=== PATIENT | male | born 1970 | race Caucasian/White ===

== ENCOUNTER 2018-05-03 15:50 | Emergency (ER) | payer BC, OTHER, SELFPAY ==
[2018-05-03] MEDS ORDERED: THIAMINE 200 MG/2 ML INJ ONE (16:56)
[2018-05-03] MEDS ORDERED: NA CHLORIDE 0.9% 1,000 ML ONE (16:56)
[2018-05-03] MEDS ORDERED: NA CHLORIDE 0.9% 100 ML IV ONE (16:56)
[2018-05-03 17:13] LABS: Absolute Lymphocytes (CBC) 1.8 K/uL (0.7-4.9); Basophils % 0.4 % (0-1.3); Eosinophils % 0.2 % (0-4.4); Hematocrit 41.2 % (39.6-49.0); Lymphocytes % 18.1 % (15.3-44.8); MCH 31.9 pg (27.0-35.0); MCV 89.7 fL (80-100); MPV 8.7 fL (7.6-11.3); Monocytes % 10.4 % (3.3-12.3); RBC Red Blood Cell Count 4.59 M/uL (4.33-5.43)
[2018-05-03 17:19] LABS: Protime INR 1.16
[2018-05-03 17:36] LABS: ALT/SGPT 29 U/L (12-78); AST/SGOT 158 U/L (15-37); Albumin 3.4 g/dL (3.4-5.0); Alkaline Phosphatase 54 U/L (45-117); BUN Blood Urea Nitrogen 10 mg/dL (7-18); Bicarbonate 28 mmol/L (21-32); Bilirubin Direct 0.2 mg/dL (0-0.2); Bilirubin Total 1.2 mg/dL (0.2-1.0); Glucose Level 127 mg/dL (74-106); Potassium 3.5 mmol/L (3.5-5.1); Protein, Total 7.4 g/dL (6.4-8.2); Sodium Level 138 mmol/L (136-145)
[2018-05-03 17:44] LABS: Barbiturates NEGATIVE (NEGATIVE); Benzodiazepines POSITIVE (NEGATIVE); Cocaine NEGATIVE (NEGATIVE); METHAMPHETAM NEGATIVE (NEGATIVE); Methadone NEGATIVE (NEGATIVE); Opiates NEGATIVE (NEGATIVE); Phencyclidine NEGATIVE (NEGATIVE); THC Cannibis NEGATIVE (NEGATIVE)
[2018-05-03 18:57] LABS: Urine Blood 2+ (NEG); Urine Glucose NEGATIVE (NEG); Urine Protein NEGATIVE (NEG)
--- NOTE | 2018-05-03 19:47 | RAD REPORT ---
EXAM DESCRIPTION: CT - Head C Spine Logan King - 05/03/2018 7:18 pm CLINICAL HISTORY: Head and neck injury with chest and abdominal pain status post fall. Head and neck pain . TECHNIQUE: Computed axial tomography of the head and cervical spine was obtained Computed axial tomography of the chest, abdomen and pelvis was obtained. 100 cc Isovue-300 was given intravenously coronal and sagittal reconstruction was performed. All CT scans are performed using dose optimization technique as appropriate and may include automated exposure control or mA/KV adjustment according to patient size. COMPARISON: None FINDINGS: An intracranial bleed is not seen. The ventricles are normal in caliber. An extra-axial fl uid collection is not noted. Fluid within the sinuses/mastoids is not seen A cervical fracture is not seen. No dislocation is seen. A mediastinal hematoma is not noted. A pleural effusion is not present. A lung contusion is not seen. Mild right lower lobe atelectasis is seen The liver, spleen, pancreas, adrenals, kidneys and bladder appear unremarkable. A small umbilical hernia seen IMPRESSION: 1. No acute intracranial abnormality is seen 2. A cervical fracture is not visualized. If the patient continues have symptoms to suggest intracran ial/spinal cord pathology then MRI would be recommended. 3. No traumatic injury involving the chest, abdomen or pelvis is seen.
[2018-05-03] MEDS ORDERED: IBUPROFEN 400 MG TAB ONE (21:34)
--- NOTE | 2018-05-03 23:53 | ER ---
Nurse's Notes [facility] Name: Jeremiah Chambers Age: 47 yrs Sex: Male : 1970 Arrival Date: 05/03/2018 Time: 15:56 Bed 18 Private MD: Jewel Salinas E Diagnosis: Adjustment disorder with depressed mood;Anxiety disorder, unspecified Presentation: 05/03 15:57 Presenting complaint: Patient states: took unknown number of 2 mg xanax last night at [facility] approximately 12am or 1am. Pt denies drinking last night. Abrasion noted to left posterior shoulder but pt is unable to say what happened. Pt states he took medication to try to sleep after getting in an argument with his . Transition of care: patient was not received from another setting of care. Onset of symptoms was May 03, 2018 at 00:00. Risk Assessment: Do you want to hurt yourself or someone else? Other: pt denies but took an unknown number of 2 mg xanax last night. Initial Sepsis Screen: Does the patient meet any 2 criteria? No. Patient's initial sepsis screen is negative. Does the patient have a suspected source of infection? No. Patient's initial sepsis screen is negative. Care prior to arrival: None. 15:57 Method Of Arrival: Wheelchair 5 15:57 Acuity: MONIQUE 2 dm5 Historical: - Allergies: 16:20 No Known Allergies; mg2 - Home Meds: 16:20 Xanax Oral [Active]; mg2 - PMHx: 16:20 Depression; mg2 - PSHx: 16:20 Hernia repair; mg2 - Immunization history:: Flu vaccine is not up to date. - Social history:: Smoking status: Patient/guardian denies using tobacco, Patient uses alcohol, on a daily basis. Patient/guardian denies using street drugs, IV drugs. - Ebola Screening: : No symptoms or risks identified at this time. Screenin:21 Abuse screen: Denies threats or abuse. Denies injuries from another. Nutritional mg2 screening: No deficits noted. Tuberculosis screening: No symptoms or risk factors identified. Fall Risk Fall in past 12 months (25 points). IV access (20 points). Assessment: 16:22 General: Appears in no apparent distress. comfortable, Behavior is calm, cooperative. mg2 Pain: Complains of pain in left shoulder Pain does not radiate. Pain currently is 8 out of 10 on a pain scale. Quality of pain is described as aching, Pain began suddenly, last night Is intermittent. Neuro: Level of Consciousness is awake, alert, obeys commands, Oriented to person, place, time, situation. Cardiovascular: Capillary refill < 3 seconds Patient's skin is warm and dry. Respiratory: Airway is patent Respiratory effort is even, unlabored, Respiratory pattern is regular, symmetrical. GI: No signs and/or symptoms were reported involving the gastrointestinal system. GI: Reports. GI: Reports nausea. : No signs and/or symptoms were reported regarding the genitourinary system. EENT: No signs and/or symptoms were reported regarding the EENT system. Derm: Skin is intact, Wound noted left shoulder blade Wound is abrasion. Musculoskeletal: Circulation, motion, and sensation intact. 18:33 Reassessment: Patient appears in no apparent distress at this time. Patient and/or mg2 family updated on plan of care and expected duration. Pain level reassessed. Patient is alert, oriented x 3, equal unlabored respirations, skin warm/dry/pink. 's [id number]. 19:33 Reassessment: Patient appears in no apparent distress at this time. Patient and/or jd3 family updated on plan of care and expected duration. Pain level reassessed. Patient is alert, oriented x 3, equal unlabored respirations, skin warm/dry/pink. pt in room with sitter at bedside, watching TV. 20:00 Reassessment: Patient appears in no apparent distress at this time. No changes from [facility] previously documented assessment. Patient and/or family updated on plan of care and expected duration. Pain level reassessed. Patient is alert, oriented x 3, equal unlabored respirations, skin warm/dry/pink. spoke with on the phone and explained the process of needing to be evaluated by [facility], pt reported understanding and is cooperating. 21:00 Reassessment: Patient appears in no apparent distress at this time. Patient and/or jd3 family updated on plan of care and expected duration. Pain level reassessed. Patient is alert, oriented x 3, equal unlabored respirations, skin warm/dry/pink. 22:00 Reassessment: Patient appears in no apparent distress at this time. No changes from jd3 previously documented assessment. Patient and/or family updated on plan of care and expected duration. Pain level reassessed. Patient is alert, oriented x 3, equal unlabored respirations, skin warm/dry/pink. 23:00 Reassessment: Patient appears in no apparent distress at this time. Patient and/or jd3 family updated on plan of care and expected duration. Pain level reassessed. Patient is alert, oriented x 3, equal unlabored respirations, skin warm/dry/pink. 05/04 00:01 Reassessment: Patient appears in no apparent distress at this time. Patient and/or jd3 family updated on plan of care and expected duration. Pain level reassessed. Patient is alert, oriented x 3, equal unlabored respirations, skin warm/dry/pink. provider in room with pt discussing plan of care. Psych: 05/03 21:14 Subjective: Patient's mood is appropriate Delusions are denied, Hallucinations are jd3 denied Having thoughts of suicide. Objective: Patient is cooperative, pt was initially not wanting to cooperate. pt is now cooperative. Interventions: Removed personal items and placed in bag. Patient placed in hospital gown. Searched person for dangerous items. Urine collected and sent for urine drug test. Belonging list filled out. Suicide Risk Assessment: Sad Person Scale: Sex of patient: Male: Score 1 point. Age of patient: Score 0 point if patient falls outside of specified age parameters. Depression: Score 0 point if signs of depression are not present. Previous Attempt: Score 0 point if patient has not previously attempted suicide. Substance Abuse: Score 1 point if patient abuses alcohol or drugs. Rational Thinking: Score 0 point if patient has rational thinking. Social Support: Score 0 if social support is present/available. Organized Plan: Score 1 point if patient had a plan in place. Relationship: Score 0 point if patient has a spouse or domestic partner. Chronic Sickness: Score 0 point if patient does not have a chronic illness, debilitating, or severe disorder. TOTAL POINTS: If total points are 3-4, proposed clinical action is close follow-up/consider hospitalization. Safety Checks: Personal items have been removed. Door is open. No visitors are present at this time. Patient uses benzodiazepines. 05/04 00:02 Commitment: pt discharged. j Vital Signs: 05/03 15:57 BP 127 / 90; Pulse 97; Resp 25; Pulse Ox 94% on R/A; dm5 16:06 Temp 98.7; Weight 88.45 kg; Height 5 ft. 9 in. (175.26 cm); mg2 17:34 BP 116 / 87; Pulse 88; Resp 18; Pulse Ox 100% ; mg2 18:35 BP 133 / 97; Pulse 79; Resp 18; Pulse Ox 100% on R/A; mg2 19:35 BP 136 / 92; Pulse 87; Resp 18 S; Pulse Ox 95% on R/A; jd3 23:35 BP 126 / 79; Pulse 85; Resp 17 S; Temp 99.8(O); Pulse Ox 99% on R/A; Pain 0/10; jd3 16:06 Body Mass Index 28.80 (88.45 kg, 175.26 cm) mg2 ED Course: 15:56 Patient arrived in ED. mr 15:56 Jewel Salinas MD is Private Physician. mr 15:57 Arm band placed on right wrist. Patient placed in an exam room, on a stretcher, on dm5 night monitor, on pulse oximetry. 16:00 Triage completed. dm5 16:06 Ajith Dumont, RN is Primary Nurse. mg2 16:21 No provider procedures requiring assistance completed. Inserted saline lock: 20 gauge mg2 in right antecubital area, using aseptic technique. Blood collected. 16:24 Patient has correct armband on for positive identification. Pulse ox on. NIBP on. Door mg2 closed. Warm blanket given. 16:41 Lars Baltazar MD is Attending Physician. [facility] 17:26 EKG done, by tree and shrub technician. reviewed by Lars Baltazar MD. 3 19:15 Safety Checks: Personal items have been removed. The door is open or patient has been jd3 placed in a hallway bed/chair. Sitter present at this time. 19:18 CT [facility] (Head C Spine CAP W Con) In Process Unspecified. EDMS 19:30 Safety Checks: Personal items have been removed. The door is open or patient has been jd3 placed in a hallway bed/chair. Sitter present at this time. 19:31 Safety Checks: Personal items have been removed. The door is open or patient has been gc placed in a hallway bed/chair. Sitter present at this time. 19:38 Lavern Rankin FNP-C is PHCP. snw 19:45 Safety Checks: Personal items have been removed. The door is open or patient has been gc placed in a hallway bed/chair. Sitter present at this time. 20:00 Safety Checks: Personal items have been removed. The door is open or patient has been gc placed in a hallway bed/chair. Sitter present at this time. 20:15 Safety Checks: Personal items have been removed. The door is open or patient has been gc placed in a hallway bed/chair. Sitter present at this time. 20:30 Safety Checks: Personal items have been removed. The door is open or patient has been gc placed in a hallway bed/chair. Sitter present at this time. 20:45 Safety Checks: Personal items have been removed. The door is open or patient has been gc placed in a hallway bed/chair. Sitter present at this time. 21:00 Safety Checks: Personal items have been removed. The door is open or patient has been gc placed in a hallway bed/chair. Sitter present at this time. 21:15 Safety Checks: Personal items have been removed. The door is open or patient has been gc placed in a hallway bed/chair. Sitter present at this time. 21:30 Safety Checks: Personal items have been removed. The door is open or patient has been jd3 placed in a hallway bed/chair. Sitter present at this time. 21:45 Safety Checks: Personal items have been removed. The door is open or patient has been jd3 placed in a hallway bed/chair. Sitter present at this time. 22:00 Safety Checks: Personal items have been removed. The door is open or patient has been jd3 placed in a hallway bed/chair. Sitter present at this time. 22:15 Safety Checks: Personal items have been removed. The door is open or patient has been jd3 placed in a hallway bed/chair. Sitter present at this time. 22:30 Safety Checks: Personal items have been removed. The door is open or patient has been gc placed in a hallway bed/chair. Sitter present at this time. 22:45 Safety Checks: Personal items have been removed. The door is open or patient has been gc placed in a hallway bed/chair. Sitter present at this time. 23:00 Safety Checks: Personal items have been removed. The door is open or patient has been gc placed in a hallway bed/chair. Sitter present at this time. 23:15 Safety Checks: Personal items have been removed. The door is open or patient has been gc placed in a hallway bed/chair. Sitter present at this time. 23:15 Spoke with [facility] and arranged for a screener. cc 23:30 Safety Checks: Personal items have been removed. The door is open or patient has been gc placed in a hallway bed/chair. Sitter present at this time. 23:45 Safety Checks: Personal items have been removed. The door is open or patient has been jd3 placed in a hallway bed/chair. Sitter present at this time. 23:52 Jewel Salinas MD is Referral Physician. [facility] 05/04 00:00 Safety Checks: Personal items have been removed. The door is open or patient has been jd3 placed in a hallway bed/chair. Sitter present at this time. 00:03 IV discontinued, intact, bleeding controlled, No redness/swelling at site. Pressure jd3 dressing applied. Administered Medications: 05/03 17:02 Drug: NS 0.9% 1000 ml Route: IV; Rate: 1 bolus; Site: right antecubital; mg2 19:00 Follow up: Response: No adverse reaction; IV Status: Completed infusion; IV Intake: jd3 1000ml 17:03 Drug: Thiamine 100 mg Route: IV; Rate: bolus; Site: right antecubital; mg2 05/04 00:04 Follow up: Response: No adverse reaction; IV Status: Completed infusion jd3 05/03 21:33 Drug: Motrin 400 mg Route: PO; jd3 05/04 00:04 Follow up: Response: No adverse reaction jd3 Intake: 05/03 19:00 IV: 1000ml; Total: 1000ml. jd3 Outcome: 23:53 Discharge ordered by . [facility] 05/04 00:02 Condition: stable jd3 00:06 Discharged to home ambulatory. jd3 00:06 Discharge instructions given to patient, Instructed on discharge instructions, follow up and referral plans. Demonstrated understanding of instructions, follow-up care. 00:10 Patient left the ED. jd3 Signatures: Dispatcher [employer] Lesly Mercado, TAZ RN Lars Jett MD MD cha Therrien, Shelly, TRANSIT COACH OPERATOR-C TRANSIT COACH OPERATOR-Csnw Piedad Griffiths mr ChurchDaisha Jonathon, RN RN jd3 Ajith Dumont RN RN mg2 Kaitlynn Sifuentes sm3 Tiki Levy gc Corrections: (The following items were deleted from the chart) 05/03 17:35 16:06 Temp 98.7F; Height 5 ft. 9 in.; mg2 mg2
--- NOTE | 2018-05-03 23:53 | EDPHYS ---
Physician Documentation [facility] Name: Jeremiah Chambers Age: 47 yrs Sex: Male : 1970 Arrival Date: 05/03/2018 Time: 15:56 Bed 18 Private MD: Jewel Salinas E ED Physician Lars Baltazar HPI: 05/03 18:49 This 47 yrs old Male presents to ER via Wheelchair with complaints of kristopher Overdose. 18:49 The patient presents to the emergency department after a known overdose, that was kristopher intentional. Context: Method: the patient has a confirmed or suspected ingestion, of benzodiazepines, Time: last night. Associated signs and symptoms: The patient has no apparent associated signs or symptoms. Severity of symptoms: At their worst the symptoms were mild in the emergency department the symptoms are unchanged. Historical: - Allergies: 16:20 No Known Allergies; mg2 - Home Meds: 16:20 Xanax Oral [Active]; mg2 - PMHx: 16:20 Depression; mg2 - PSHx: 16:20 Hernia repair; mg2 - Immunization history:: Flu vaccine is not up to date. - Social history:: Smoking status: Patient/guardian denies using tobacco, Patient uses alcohol, on a daily basis. Patient/guardian denies using street drugs, IV drugs. - Ebola Screening: : No symptoms or risks identified at this time. ROS: 18:50 Constitutional: Negative for fever, chills, and weight loss, Eyes: Negative for injury, kristopher pain, redness, and discharge, ENT: Negative for injury, pain, and discharge, Neck: Negative for injury, pain, and swelling, Cardiovascular: Negative for chest pain, palpitations, and edema, Respiratory: Negative for shortness of breath, cough, wheezing, and pleuritic chest pain, Abdomen/GI: Negative for abdominal pain, nausea, vomiting, diarrhea, and constipation, : Negative for injury, bleeding, discharge, and swelling, MS/Extremity: Negative for injury and deformity, Skin: Negative for injury, rash, and discoloration. 18:50 Back: Positive for decreased range of motion, pain at rest, pain with movement, of the left scapular area. Exam: 18:50 Constitutional: This is a well developed, well nourished patient who is awake, alert, kristopher and in no acute distress. Head/Face: Normocephalic, atraumatic. Eyes: Pupils equal round and reactive to light, extra-ocular motions intact. Lids and lashes normal. Conjunctiva and sclera are non-icteric and not injected. Cornea within normal limits. Periorbital areas with no swelling, redness, or edema. ENT: Nares patent. No nasal discharge, no septal abnormalities noted. Tympanic membranes are normal and external auditory canals are clear. Oropharynx with no redness, swelling, or masses, exudates, or evidence of obstruction, uvula midline. Mucous membranes moist. Neck: Trachea midline, no thyromegaly or masses palpated, and no cervical lymphadenopathy. Supple, full range of motion without nuchal rigidity, or vertebral point tenderness. No Meningismus. Chest/axilla: Normal chest wall appearance and motion. Nontender with no deformity. No lesions are appreciated. Cardiovascular: Regular rate and rhythm with a normal S1 and S2. No gallops, murmurs, or rubs. Normal PMI, no JVD. No pulse deficits. Respiratory: Lungs have equal breath sounds bilaterally, clear to auscultation and percussion. No rales, rhonchi or wheezes noted. No increased work of breathing, no retractions or nasal flaring. Abdomen/GI: Soft, non-tender, with normal bowel sounds. No distension or tympany. No guarding or rebound. No evidence of tenderness throughout. Male : Normal genitalia with no discharge or lesions. Skin: Warm, dry with normal turgor. Normal color with no rashes, no lesions, and no evidence of cellulitis. MS/ Extremity: Pulses equal, no cyanosis. Neurovascular intact. Full, normal range of motion. Neuro: Awake and alert, GCS 15, oriented to person, place, time, and situation. Cranial nerves II-XII grossly intact. Motor strength 5/5 in all extremities. Sensory grossly intact. Cerebellar exam normal. Normal gait. 18:50 Back: pain, that is mild, of the left scapular area, ROM is painful, normal spinal alignment noted, CVA tenderness, is absent, vertebral tenderness, is not appreciated, muscle spasm, is appreciated in the left scapular area, left subscapular area and thoracic area. 18:50 Psych: Behavior/mood is depressed, Affect is flat, Oriented to person, place, time, Patient has no thoughts/intents to harm self or others. Judgement / Insight is normal. Memory is normal. Delusions/hallucinations tired of living, took xanax for that reason. Vital Signs: 15:57 BP 127 / 90; Pulse 97; Resp 25; Pulse Ox 94% on R/A; dm5 16:06 Temp 98.7; Weight 88.45 kg; Height 5 ft. 9 in. (175.26 cm); mg2 17:34 BP 116 / 87; Pulse 88; Resp 18; Pulse Ox 100% ; mg2 18:35 BP 133 / 97; Pulse 79; Resp 18; Pulse Ox 100% on R/A; mg2 19:35 BP 136 / 92; Pulse 87; Resp 18 S; Pulse Ox 95% on R/A; jd3 23:35 BP 126 / 79; Pulse 85; Resp 17 S; Temp 99.8(O); Pulse Ox 99% on R/A; Pain 0/10; jd3 16:06 Body Mass Index 28.80 (88.45 kg, 175.26 cm) mg2 MDM: 16:41 Patient medically screened. [facility] 18:53 Data reviewed: vital signs, nurses notes, lab test result(s), EKG, radiologic studies, [facility] CT scan, plain films. 20:14 Data interpreted: Pulse oximetry: on room air is 95 %. Interpretation: acceptable. snw Counseling: I had a detailed discussion with the patient and/or guardian regarding: the historical points, exam findings, and any diagnostic results supporting the discharge/admit diagnosis, the presence of at least one elevated blood pressure reading (>120/80) during this emergency department visit, lab results, radiology results, the need to transfer to another facility, [facility] does not immediately have the required specialist. Other consultation: Mental health deputy in dept. [employer] processed for SI/attempt. 23:40 [facility]waiting: [facility] ED course: Discussed with pt the need for evaluation per Dre Mukherjee. Pt states he is not a danger to himself. He is concerned about his who needs to be at [facility] at 0300. He feels he was misheard about the reason for taking his Xanax. Pt tells me he drank about three beers. He took two xanax and a sertraline and just wanted to sleep so he could be at his best for his 's procedure. We have called [facility] repeatedly for ETA and have been denied any timeframe. Pt is more and more agitated as it gets closer to [place] as he wants to be with his .. 05/04 00:01 Special discussion: Discussed with pt need for follow up, he promises to take care of snw himself and his and will return if he feels overwhelmed. Pt is clear headed, oriented x 3, and I believe him when he says he will return prn and that he is not a danger to himself. 05/03 16:42 Order name: Acetaminophen [facility] 05/03 16:42 Order name: Basic Metabolic Panel [facility] 05/03 16:42 Order name: CBC with Diff; Complete Time: 18:29 [facility] 05/03 16:42 Order name: ETOH Level; Complete Time: 18:29 [facility] 05/03 16:42 Order name: Hepatic Function; Complete Time: 18:29 [facility] 05/03 16:42 Order name: PT-INR; Complete Time: 18:29 [facility] 05/03 16:42 Order name: Ptt, Activated; Complete Time: 18:29 [facility] 05/03 16:42 Order name: Salicylate; Complete Time: 18:29 [facility] 05/03 16:42 Order name: Urine Drug Screen; Complete Time: 18:29 [facility] 05/03 16:43 Order name: Acetaminophen Level; Complete Time: 18:29 [facility] 05/03 16:43 Order name: Basic Metabolic Panel; Complete Time: 18:29 [facility] 05/03 17:15 Order name: Urine Dipstick--Ancillary (enter results); Complete Time: 19:00 05/03 18:29 Order name: CT Traumagram (Head C Spine CAP W Con); Complete Time: 20:13 [facility] 05/03 16:42 Order name: EKG; Complete Time: 16:43 [facility] 05/03 16:42 Order name: EKG - Nurse/Tech; Complete Time: 17:12 [facility] 05/03 16:42 Order name: IV Saline Lock; Complete Time: 16:46 [facility] 05/03 16:42 Order name: Labs collected and sent; Complete Time: 16:46 [facility] 05/03 16:42 Order name: Urine Dipstick-Ancillary (obtain specimen); Complete Time: 17:12 [facility] Administered Medications: 05/03 17:02 Drug: NS 0.9% 1000 ml Route: IV; Rate: 1 bolus; Site: right antecubital; mg2 19:00 Follow up: Response: No adverse reaction; IV Status: Completed infusion; IV Intake: jd3 1000ml 17:03 Drug: Thiamine 100 mg Route: IV; Rate: bolus; Site: right antecubital; mg2 05/04 00:04 Follow up: Response: No adverse reaction; IV Status: Completed infusion jd3 05/03 21:33 Drug: Motrin 400 mg Route: PO; jd3 05/04 00:04 Follow up: Response: No adverse reaction jd3 Disposition: 07:51 Co-signature as Attending Physician, Lars Baltazar MD I agree with the assessment and [facility] plan of care. Disposition: 05/03/18 23:53 Discharged to Home. Impression: Adjustment disorder with depressed mood, Anxiety disorder, unspecified. - Condition is Stable. - Discharge Instructions: Hypertension, Generalized Anxiety Disorder, Complicated Grieving. - Medication Reconciliation Form, Thank You Letter, Antibiotic Education, Prescription Opioid Use form. - Follow up: Jewel Salinas MD; When: 1 - 2 days; Reason: Recheck today's complaints, Continuance of care, Re-evaluation by your physician. Follow up: Emergency Department; When: As needed; Reason: Worsening of condition. Signatures: Dispatcher [employer] EDNM Lars Baltazar MD MD cha Therrien, Shelly, [employer] STORE BAGGER-C GR[employer] STORE BAGGER-Rodw Omkar Ford RN RN jd3 Ajith Dumont RN RN mg2 Corrections: (The following items were deleted from the chart) 00:10 05/03 23:53 05/03/2018 23:53 Discharged to Home. Impression: Adjustment disorder with jd3 depressed mood; Anxiety disorder, unspecified. Condition is Stable. Forms are Medication Reconciliation Form, Thank You Letter, Antibiotic Education, Prescription Opioid Use. Follow up: Jewel Salinas; When: 1 - 2 days; Reason: Recheck today's complaints, Continuance of care, Re-evaluation by your physician. Follow up: Emergency Department; When: As needed; Reason: Worsening of condition. snw
--- NOTE | 2018-05-04 09:26 | EKG ---
Test Date: 2018-05-03 Test Time: 17:20:35 Cash Management Coordinator: JANETH MEASUREMENT RESULTS: Intervals: Rate: 91 VT: 144 QRSD: 76 QT: 354 QTc: 435 [place]: P: 19 VT: 144 QRS: 6 T: 13 INTERPRETIVE STATEMENTS: Normal sinus rhythm Normal ECG No previous ECG available for comparison Electronically Signed On 05-04-18 09:24:12 CDT by Josh Humphreys
== END 2018-05-04 00:10 | disposition home or self-care (01) ==
LOC: ER 15:50
DX: F43.21 Adjustment disorder with depressed mood (principal); F32.9 Major depressive disorder, single episode, unspecified
CPT/HCPCS: 36415; 70450; 71260; 72125; 74177; 80048; 80076; 80307; 80320; 80329; 81003; 85025; 85610; 85730; 93005; 96365; 96366; 99285; J3411; J7030; Q9967

== ENCOUNTER 2021-06-07 07:58 | Day surgery (SDC) | payer BC ==
[2021-06-07] MEDS: Ringers Lactate 1,000 ML IV ONE ×2 (09:45→11:55)
[2021-06-07] MEDS ORDERED: CEFAZOLIN/SWI 2gm 2 GM/20 ML SYR ONE (09:59)
[2021-06-07] MEDS ORDERED: BUPIVACAINE 0.25% PF 30 ML VIAL ONE (10:09)
[2021-06-07] MEDS ORDERED: ACETAMINOPHEN 500 MG TAB ONE (11:11)
[2021-06-07] MEDS ORDERED: CELECOXIB 100 MG CAPSULE ONE (11:11)
[2021-06-07] MEDS ORDERED: BUPIVACAINE 0.25% PF 10 ML VIAL ONE (12:20)
[2021-06-07] MEDS ORDERED: MIDAZOLAM HCL 2 MG/2 ML INJ ONE ×2 (12:20→14:06)
[2021-06-07] MEDS ORDERED: ROCURONIUM 50 MG/5 ML VIAL IV ONE (12:21)
[2021-06-07] MEDS ORDERED: dexAMETHasone 10 MG/ML VIAL ONE (12:41)
[2021-06-07] MEDS ORDERED: propofoL 200 MG/20 ML VIAL IV ONE (12:45)
--- NOTE | 2021-06-07 12:58 | P.OP ---
Preoperative diagnosis: Incarcerated Umbilical Hernia Postoperative diagnosis: Incarcerated Umbilical Hernia Primary procedure: Open Umbilical Hernia Repair with mesh Secondary procedure: partial omentectomy Anesthesia: GETA + Local Estimated blood loss: <5cc Specimen: hernia sack and contents Findings: incarcerated umbilical hernia ~ 1 cm in size Complications: None Implants: Bard Ventralex Hernia Patch 4.3cm round Transferred to: Recovery Room Condition: Good
[2021-06-07] MEDS ORDERED: GLYCOPYRROLATE 0.2 MG/ML SYR ONE (13:10)
[2021-06-07] MEDS ORDERED: NEOSTIGMINE 1 MG/ML -5 ML ONE (13:10)
[2021-06-07] MEDS: MEPERIDINE HCL 25 MG/ML SYR ONE ×2 (13:15→13:30)
[2021-06-07] MEDS ORDERED: KETOROLAC 30 MG/ML INJ ONE (13:19)
[2021-06-07] MEDS: HYDROMORPHONE HCL 1 MG/ML INJ ONE ×2 (13:20→13:25)
[2021-06-07] MEDS ORDERED: ONDANSETRON 4 MG/2 ML VIAL ONE (13:41)
[2021-06-07] MEDS ORDERED: Ringers Lactate 1,000 ML IV ONE (13:45)
[2021-06-07] MEDS ORDERED: HYDROCODONE/APAP 10/325 TAB ONE (14:40)
[2021-06-07 15:10] VITALS: BP 120/83; TEMP 97.8; O2SAT 97
--- NOTE | 2021-06-07 21:47 | OP ---
Date of Procedure: 06/07/2021 Surgeon: Negro Holt MD, Preoperative Diagnosis: Incarcerated umbilical hernia. Postoperative Diagnosis: Incarcerated umbilical hernia. Procedures Performed: 1. Open umbilical hernia repair with mesh. 2. Partial omentectomy from entrapped omentum and hernia. Anesthesia: General endotracheal plus local with 0.25% Marcaine without epinephrine. Estimated Blood Loss: 5 cc. Specimens: Hernia sac and contents. Findings: Incarcerated umbilical hernia with omentum contained approximately 1 cm in size. Complications: None. Implants: Bard Ventralex hernia patch 4.3 cm round with strap. Disposition: The patient was transferred to recovery room in good condition. Procedure In Detail: After informed consent was obtained, the patient was brought to the operating room, prepped and draped in the usual sterile fashion. After adequate anesthesia achieved, a curvilinear incision was made in the infraumbilical position down to subcutaneous tissues. Electrocautery was used to dissect down circumferentially around to expose the hernia sac. This was grasped, elevated, and opened sharply. Omentum was noted to be trapped within this. Small portion of the hernia sac was sent off for pathologic examination. The omental entrapped tissue was then delivered into the surgical field and amputated at this point as it had some ischemic changes to the distal aspect, sent this off for pathologic examination. The omentum was then returned to the preperitoneal space in the normal anatomic position. Finger sweep was performed and allowed for a clean landing zone of the hernia mesh in the preperitoneal space. At this point, I used 0 PDS suture circumferentially around the fascia to parachute in the 4.3 cm Bard Ventralex mesh in the preperitoneal space and then secured it with the same said 0 PDS sutures. At this point, the fascial defect was closed in the midline to close the hernia defect with a running 0 PDS suture. The area was irrigated at this point. I then reapproximated the umbilicus to the hernia mesh and trimmed appropriately and then closed the deep internal plane with interrupted 3-0 Vicryl suture and closed the skin with a 4-0 Monocryl in a running fashion. Dermabond was placed over top. Patient tolerated the procedure well without evidence any complications, transferred to PACU in good condition. All counts were correct at the end of the case. TK/MODL Voice ID: [id number] Report ID: [id number]
== END 2021-06-07 15:04 | disposition home or self-care (01) ==
LOC: OR 07:58
PROVIDERS: ATTEND Surgery
PROC: 0WUF0JZ Supplement Abdominal Wall with Synthetic Substitute, Open Approach (ICD-10-PCS; principal; 2021-06-07 13:00)
DX: K42.0 Umbilical hernia with obstruction, without gangrene (principal); Z20.822 Contact with and (suspected) exposure to COVID-19
CPT/HCPCS: 88302; 49587; U0003; J2704; J2250 ×2; J1100; J2175; J1170; J2710; J0690; J7120 ×2; J2405

== ENCOUNTER 2022-04-24 10:48 | Emergency (ER) | payer BC, OTHER ==
[2022-04-24] MEDS ORDERED: ASPIRIN 81 MG CHEWABLE TABLET ONE (11:29)
[2022-04-24 12:28] LABS: Albumin 4.4 g/dL (3.4-5.0); Bilirubin Direct 0.2 mg/dL (0-0.2); Magnesium 2.3 mg/dL (1.8-2.4); Protein, Total 8.4 g/dL (6.4-8.2); Troponin High Sensitivity 5.3 pg/mL (<58.9)
[2022-04-24 12:38] LABS: Absolute Lymphocytes (CBC) 2.1 K/uL (0.7-4.9); Hematocrit 48.5 % (39.6-49.0); Lymphocytes % 31.6 % (15.3-44.8); MCV 88.4 fL (80-100); MPV 7.8 fL (7.6-11.3); RBC Red Blood Cell Count 5.49 M/uL (4.33-5.43)
[2022-04-24 12:40] LABS: Protime INR 1.02
[2022-04-24] MEDS ORDERED: MORPHINE 4 MG/ML SYR ONE (13:36)
--- NOTE | 2022-04-24 13:52 | RAD REPORT ---
EXAM DESCRIPTION: RAD - Chest Single View - 04/24/2022 1:43 pm CLINICAL HISTORY: CHEST PAIN Chest pain. COMPARISON: No comparisons FINDINGS: Portable technique limits examination quality. The lungs are grossly clear. The heart is normal in size. No displaced fractures. IMPRESSION: No acute intrathoracic process suspected.
--- NOTE | 2022-04-24 14:30 | RAD REPORT ---
EXAM DESCRIPTION: CT - Angio Aorta For Dissection - 04/24/2022 2:02 pm CLINICAL HISTORY: Chest pain radiating to the back. chest pain COMPARISON: No comparisons TECHNIQUE: CT angiography of the aorta was performed with MIPs. All CT scans are performed using dose optimization technique as appropriate and may include automated exposure control or mA/KV adjustment according to patient size. FINDINGS: A left aortic arch is present with normal branching pattern of the great vessels.No acute aortic finding is seen such as aneurysm, penetrating ulcer or dissection. The celiac axis, SMA, DANIELLE and renal arteries are patent. No evidence of pulmonary embolism. The lungs are clear. The liver demonstrates no focal mass or biliary dilatation.Mild fatty liver.The spleen, pancreas, adr enal glands and kidneys are within normal limits for arterial phase imaging. No bowel obstruction, free fluid or abscess.No pathologic enlarged lymphadenopathy identified. No fracture or worrisome bone lesion seen. IMPRESSION: No acute aortic finding is demonstrated.
[2022-04-24] MEDS ORDERED: FENTANYL CITR 100 MCG/2 ML ONE (14:53)
[2022-04-24] MEDS ORDERED: KETOROLAC 30 MG/ML INJ ONE (15:40)
[2022-04-24 15:43] LABS: Urine Blood Trace-intact (Negative); Urine Glucose Negative (Negative); Urine Protein Negative (Negative)
[2022-04-24] MEDS ORDERED: LOSARTAN/HCTZ 50-12.5 ONE (15:50)
[2022-04-24 15:57] LABS: Troponin High Sensitivity 5.4 pg/mL (<58.9)
[2022-04-24 16:17] LABS: Urine RBC <5 /HPF (None Seen)
--- NOTE | 2022-04-24 16:58 | ER ---
Nurse's Notes [facility] Name: Jeremiah Chambers Age: 51 yrs Sex: Male : 1970 Arrival Date: 04/24/2022 Time: 10:50 Bed 17 Private MD: Diagnosis: Chest pain, unspecified;Hypertensive heart disease without heart failure Presentation: 04/24 11:12 Chief complaint: Patient states: Dr. Richter sent me here. my BP over there was high 4 tw2 times. 184/144. my chest is hurting started last night. feel short of breath. its the LEFT arm and shoulder blade that's numb. i dont really know how to explain it. Coronavirus screen: At this time, the client does not indicate any symptoms associated with coronavirus-19. Ebola Screen: Patient denies travel to an Ebola-affected area in the 21 days before illness onset. Initial Sepsis Screen: Does the patient meet any 2 criteria? No. Patient's initial sepsis screen is negative. Does the patient have a suspected source of infection? No. Patient's initial sepsis screen is negative. Risk Assessment: Do you want to hurt yourself or someone else? Patient reports no desire to harm self or others. Onset of symptoms was April 24, 2022. 11:12 Method Of Arrival: Wheelchair tw2 11:12 Acuity: MONIQUE 3 tw2 11:16 Note provider NORA Jefferson in triage room performing assessment at this time. tw2 11:17 Chief complaint: Patient states: Dr. Mares did put me on blood pressure medicine tw2 today. Triage Assessment: 11:15 General: Appears in no apparent distress. well groomed, Behavior is calm, cooperative, tw2 appropriate for age. Pain: Complains of pain in chest. Pain: Complains of pain in left shoulder and neck constant pain. Cardiovascular: Reports chest pain, shortness of breath. Historical: - Allergies: 11:16 No Known Allergies; tw2 - Home Meds: 11:16 trazodone 50 mg Oral tab 1 tab once daily [Active]; tw2 - PMHx: 11:16 Depression; tw2 - Immunization history:: Adult Immunizations. - Social history:: Smoking status: . Screenin:19 Abuse screen: Denies threats or abuse. Nutritional screening: No deficits noted. tw2 Tuberculosis screening: No symptoms or risk factors identified. Fall Risk None identified. Assessment: 11:19 Pain: Complains of pain in chest pain and LEFT arm constant pain Pain does not radiate. tw2 Pain began 2-3 days ago. 13:40 General: Appears in no apparent distress. uncomfortable, Behavior is calm, cooperative, ld1 appropriate for age. Pain: Complains of pain in chest Pain radiates to back Pain currently is 8 out of 10 on a pain scale. Quality of pain is described as Pain began 2-3 days ago. Is intermittent. Neuro: Level of Consciousness is awake, alert, obeys commands, Oriented to person, place, time, situation. Cardiovascular: Capillary refill < 3 seconds Patient's skin is warm and dry. Rhythm is sinus rhythm. Respiratory: Airway is patent Respiratory effort is even, unlabored. GI: Abdomen is round non-distended. : No signs and/or symptoms were reported regarding the genitourinary system. EENT: No signs and/or symptoms were reported regarding the EENT system. Derm: No signs and/or symptoms reported regarding the dermatologic system. Musculoskeletal: No signs and/or symptoms reported regarding the musculoskeletal system. 14:40 Reassessment: No changes from previously documented assessment. Pt reporting unrelieved ld1 pain. Notified ERP, See MAR for orders. Patient states symptoms have not improved. Vital Signs: 11:12 BP 145 / 105; Pulse 69; Resp 17; Temp 97.7(TE); Pulse Ox 98% on R/A; Weight 92.99 kg tw2 (R); Height 5 ft. 9 in. (175.26 cm); Pain 8/10; 13:40 BP 158 / 109; Pulse 57; Resp 18; Pulse Ox 99% on R/A; Pain 8/10; ld1 14:48 BP 139 / 105; Pulse 59; Resp 21; Pulse Ox 97% on R/A; ld1 15:43 BP 160 / 108; Pulse 64; Resp 18; Pulse Ox 99% ; ld1 16:25 BP 152 / 106; Pulse 60; Resp 11; Pulse Ox 98% on R/A; ld1 11:12 Body Mass Index 30.27 (92.99 kg, 175.26 cm) tw2 ED Course: 10:50 Patient arrived in ED. rg4 11:11 Lars Angeles [facility]. cp 11:11 Lars Baltazar MD is Attending Physician. cp 11:12 Arm band placed on. tw2 11:12 EKG completed in triage. Results shown to MD. tw2 11:15 Triage completed. tw2 11:17 Patient maintains SpO2 saturation greater than 95% on room air. tw2 13:24 Leesa Munoz, RN is Primary Nurse. ld1 13:40 Patient has correct armband on for positive identification. Placed in gown. Bed in low ld1 position. Call light in reach. Side rails up X2. monitor car operator on. Pulse ox on. NIBP on. Door closed. Noise minimized. Warm blanket given. 13:40 No provider procedures requiring assistance completed. Inserted saline lock: 22 gauge ld1 in left antecubital area, using aseptic technique. 13:43 XRAY Chest (1 view) In Process Unspecified. EDMS 14:03 CT Aorta for Dissection In Process Unspecified. EDMS 15:42 Urine Microscopic Only Sent. ld1 16:56 Josh Humphreys MD is Referral Physician. cp 17:11 IV discontinued, intact, bleeding controlled, No redness/swelling at site. ld1 Administered Medications: 11:20 Drug: Aspirin Chewable Tablet 324 mg Route: PO; ph 13:39 Follow up: Response: No adverse reaction ld1 13:39 Drug: morphine 2 mg Route: IVP; Infused Over: 4 mins; Site: left antecubital; ld1 14:50 Follow up: Response: No adverse reaction; Pain is unchanged, physician notified ld1 13:39 Drug: morphine 2 mg Route: IVP; Infused Over: 4 mins; Site: left antecubital; ld1 14:50 Follow up: Response: No adverse reaction; Pain is unchanged, physician notified ld1 14:48 Drug: fentaNYL (PF) 25 mcg Route: IVP; Site: left antecubital; ld1 15:42 Follow up: Response: No adverse reaction; Pain is decreased ld1 15:21 CANCELLED (Physician Discretion): Metoprolol 25 mg PO once cp 15:42 Drug: Ketorolac 15 mg Route: IVP; Site: left antecubital; ld1 15:43 Follow up: Response: No adverse reaction; Pain is decreased ld1 15:56 Drug: Losartan-Hydrochlorothiazide 50 mg-12.5 mg 1 tablet Route: PO; ld1 16:31 Follow up: Response: No adverse reaction; Blood pressure is lowered ld1 Medication: 13:40 VIS not applicable for this client. ld1 Outcome: 16:57 Discharge ordered by . cp 17:11 Discharged to home ambulatory, with family. ld1 17:11 Condition: stable 17:11 Discharge instructions given to patient, family, Instructed on discharge instructions, follow up and referral plans. medication usage, Demonstrated understanding of instructions, follow-up care, medications, Prescriptions given X 1. 17:11 Patient left the ED. ld1 Signatures: Dispatcher [employer] EDMS Halle Davis RN RN ph Lars Angeles PA PA cp Wise, Tara RN RN 2 Sita Haque 4 Leesa Munoz RN RN ld1
--- NOTE | 2022-04-24 16:58 | EDPHYS ---
Physician Documentation [facility] Name: Jeremiah Chambers Age: 51 yrs Sex: Male : 1970 Arrival Date: 04/24/2022 Time: 10:50 Bed 17 Private MD: ED Physician Lars Baltazar HPI: 04/24 11:20 This 51 yrs old Male presents to ER via Wheelchair with complaints of Chest Pain, cp Numbness Of Arm, Headache. 11:20 The patient or guardian reports chest pain that is located primarily in the left side cp of chest. 11:20 Onset: last night. The pain radiates to the left shoulder, left back. Associated signs cp and symptoms: Pertinent positives: left arm numbness. The chest pain is described as aching. Duration: The patient or guardian reports a single episode, that is still ongoing, and unchanged. The patient has been recently seen by a physician: Dr. Penny earlier today, with similar presenting complaints, and was sent to the [facility] Emergency Department for further evaluation. Patient reports he was prescribed blood pressure medication today due to elevated blood pressure at clinic. Historical: - Allergies: 11:16 No Known Allergies; tw2 - Home Meds: 11:16 trazodone 50 mg Oral tab 1 tab once daily [Active]; tw2 - PMHx: 11:16 Depression; tw2 - Immunization history:: Adult Immunizations. - Social history:: Smoking status: . ROS: 11:23 Constitutional: Negative for body aches, chills, fever, poor PO intake. cp 11:23 Eyes: Negative for injury, pain, redness, and discharge. cp 11:23 Cardiovascular: Positive for chest pain, Negative for edema, palpitations. 11:23 Respiratory: Negative for cough, shortness of breath, wheezing. 11:23 Abdomen/GI: Negative for abdominal pain, nausea, vomiting, and diarrhea, constipation. 11:23 Back: Positive for radiated pain, of the left trapezius and left scapular area. cp 11:23 Neck: Negative for pain with movement, pain at rest, stiffness, bony tenderness. cp 11:23 Neuro: Positive for headache, numbness, of the left arm, Negative for altered mental status, weakness. 11:23 All other systems are negative. Exam: 11:25 ECG was reviewed by the Attending Physician. cp 11:30 Constitutional: The patient appears in no acute distress, alert, awake, cp non-diaphoretic, non-toxic, well developed, well nourished. 11:30 Head/Face: Normocephalic, atraumatic. cp 11:30 Eyes: Periorbital structures: appear normal, Conjunctiva: normal, no exudate, no injection, Sclera: no appreciated abnormality, Lids and lashes: appear normal, bilaterally. 11:30 ENT: External ear(s): are unremarkable, Nose: is normal, Mouth: Lips: moist, Oral mucosa: pink and intact, moist, Posterior pharynx: Airway: no evidence of obstruction, patent. 11:30 Neck: C-spine: vertebral tenderness, is not appreciated, crepitus, is not appreciated, ROM/movement: is normal, is supple, without pain, no range of motions limitations, no nuchal rigidity. 11:30 Chest/axilla: Inspection: normal, Palpation: is normal, no crepitus, no tenderness. 11:30 Cardiovascular: Rate: normal, Rhythm: regular, Pulses: Pulses are 2+ in right radial artery and left radial artery. Edema: is not appreciated, JVD: is not appreciated. 11:30 Respiratory: the patient does not display signs of respiratory distress, Respirations: normal, no use of accessory muscles, no retractions, labored breathing, is not present, Breath sounds: are clear throughout, no decreased breath sounds, no stridor, no wheezing. 11:30 Abdomen/GI: Exam negative for discomfort, distension, guarding, Inspection: abdomen appears normal. 11:30 Back: pain, that is mild, of the left trapezius and left scapular area, ROM is normal. 11:30 Neuro: Orientation: to person, place \T\ time. Mentation: is normal, Motor: moves all fours, strength is normal, Sensation: no obvious gross deficits. Vital Signs: 11:12 BP 145 / 105; Pulse 69; Resp 17; Temp 97.7(TE); Pulse Ox 98% on R/A; Weight 92.99 kg tw2 (R); Height 5 ft. 9 in. (175.26 cm); Pain 8/10; 13:40 BP 158 / 109; Pulse 57; Resp 18; Pulse Ox 99% on R/A; Pain 8/10; ld1 14:48 BP 139 / 105; Pulse 59; Resp 21; Pulse Ox 97% on R/A; ld1 15:43 BP 160 / 108; Pulse 64; Resp 18; Pulse Ox 99% ; ld1 16:25 BP 152 / 106; Pulse 60; Resp 11; Pulse Ox 98% on R/A; ld1 11:12 Body Mass Index 30.27 (92.99 kg, 175.26 cm) tw2 MDM: 11:35 Patient medically screened. cp 15:25 Physician consultation: Stanford Penny MD was called at 15:20, was contacted at 15:20, cp regarding consult, patient's condition, reports prescribing Losartan/HCTZ 50/12.5 mg today for blood pressure. Patient has been referred to cardiology in the past but did not f/u. 16:55 Data reviewed: vital signs, nurses notes, lab test result(s), EKG, radiologic studies, cp CT scan, plain films. 16:55 The patient was given aspirin in the Emergency Department. Test interpretation: by ED cp physician or midlevel provider: ECG, plain radiologic studies. 04/24 11:25 Order name: Basic Metabolic Panel; Complete Time: 13:19 cp 04/24 14:52 Interpretation: Normal except: GFR 86. 04/24 11:25 Order name: CBC with Diff; Complete Time: 13:19 cp 04/24 11:25 Order name: LFT's; Complete Time: 13:19 cp 04/24 11:25 Order name: Magnesium; Complete Time: 13:19 04/24 11:25 Order name: NT PRO-BNP; Complete Time: 13:19 cp 04/24 11:25 Order name: PT-INR; Complete Time: 13:19 cp 04/24 11:25 Order name: Troponin HS; Complete Time: 13:19 cp 04/24 11:25 Order name: XRAY Chest (1 view); Complete Time: 13:56 cp 04/24 13:21 Order name: CT Aorta for Dissection; Complete Time: 14:51 cp 04/24 15:16 Order name: Urine Microscopic Only; Complete Time: 16:25 cp 04/24 15:16 Order name: CK; Complete Time: 16:25 cp 04/24 15:16 Order name: Troponin HS; Complete Time: 16:25 cp 04/24 16:26 Interpretation: Reviewed. 04/24 15:43 Order name: Urine Dipstick-Ancillary; Complete Time: 16:25 EDMS 04/24 16:26 Interpretation: Abnormal: UBLD Trace-intact. cp 04/24 11:18 Order name: EKG - Nurse/Tech; Complete Time: 11:34 tw2 04/24 11:25 Order name: Cardiac monitoring; Complete Time: 13:39 cp 04/24 11:25 Order name: IV Saline Lock; Complete Time: 13:33 cp 04/24 11:25 Order name: Labs collected and sent; Complete Time: 13:33 cp 04/24 11:25 Order name: O2 Per Protocol; Complete Time: 13:25 cp 04/24 11:25 Order name: O2 Sat Monitoring; Complete Time: 13:25 cp 04/24 15:16 Order name: Urine Dipstick-Ancillary (obtain specimen); Complete Time: 15:42 cp EC:25 Rate is 66 beats/min. Rhythm is regular. IA interval is normal. QRS interval is normal. cp QT interval is normal. T waves are Inverted in lead aVR. Interpreted by me. Reviewed by me. Administered Medications: 11:20 Drug: Aspirin Chewable Tablet 324 mg Route: PO; ph 13:39 Follow up: Response: No adverse reaction ld1 13:39 Drug: morphine 2 mg Route: IVP; Infused Over: 4 mins; Site: left antecubital; ld1 14:50 Follow up: Response: No adverse reaction; Pain is unchanged, physician notified ld1 13:39 Drug: morphine 2 mg Route: IVP; Infused Over: 4 mins; Site: left antecubital; ld1 14:50 Follow up: Response: No adverse reaction; Pain is unchanged, physician notified ld1 14:48 Drug: fentaNYL (PF) 25 mcg Route: IVP; Site: left antecubital; ld1 15:42 Follow up: Response: No adverse reaction; Pain is decreased ld1 15:21 CANCELLED (Physician Discretion): Metoprolol 25 mg PO once cp 15:42 Drug: Ketorolac 15 mg Route: IVP; Site: left antecubital; ld1 15:43 Follow up: Response: No adverse reaction; Pain is decreased ld1 15:56 Drug: Losartan-Hydrochlorothiazide 50 mg-12.5 mg 1 tablet Route: PO; ld1 16:31 Follow up: Response: No adverse reaction; Blood pressure is lowered ld1 Disposition Summary: 04/24/22 16:57 Discharge Ordered Location: Home cp Problem: new cp Symptoms: have improved cp Condition: Stable cp Diagnosis - Chest pain, unspecified cp - Hypertensive heart disease without heart failure cp Followup: cp - With: Josh Humphreys MD - When: next Thursday for reevaluation - Reason: Discharge Instructions: - Nonspecific Chest Pain, Adult cp - Hypertension, Adult cp - Discharge Summary Sheet tw2 - Aspirin and Your Heart cp - How to Take Your Blood Pressure cp Forms: - Work release form tw2 - Medication Reconciliation Form cp - Thank You Letter cp - Antibiotic Education cp - Prescription Opioid Use cp Prescriptions: - Diclofenac Sodium 75 mg Oral tablet,delayed release (DR/EC) - take 1 tablet by ORAL route 2 times per day; 20 tablet; Refills: 0, Product cp Selection Permitted Signatures: Dispatcher [employer] EDMD Halle Davis RN RN Lars Angeles PA PA cp Mercedez Mireles RN RN tw2 Leesa Munoz RN RN ld1 Corrections: (The following items were deleted from the chart) 15:21 15:18 Metoprolol 25 mg PO once ordered. cp cp 04/25 16:53 04/24 16:26 Data reviewed: vital signs, nurses notes, lab test result(s), EKG, cp radiologic studies, CT scan, plain films, cp
[2022-04-25 20:18] VITALS: TEMP 97.7
[2022-04-25 20:31] VITALS: BP 152/106; O2SAT 98
== END 2022-04-24 17:11 | disposition home or self-care (01) ==
LOC: ER 10:48
DX: R07.89 Other chest pain (principal); I11.9 Hypertensive heart disease without heart failure; F32.A Depression, unspecified
CPT/HCPCS: 93005; 85025; 80048; 36415; 83735; 82550; 85610; 80076; 84484 ×2; 83880; 71275; 74175; 71045; 96375; 96374; 99285; Q9967; J3010; 81003; 81015